=== PATIENT | male | born 1945 | race Caucasian/White ===

== ENCOUNTER 2016-12-04 09:18 | Emergency (ER) | payer MEDICARE ==
[~2016-12-04] VITALS: Ht 175.3 cm; Wt 94.8 kg
[~2016-12-04 09:18] MED LIST: ALBU17IN2; ALPHTAB2 PO; ASPI81TA85 PO; CHLO25TA PO; CIPR250T3 PO; FINA5TAB2 PO; LOSA25TA8 PO; METR500T10 PO; REFR1DRO8 OP; SIMV20TA2 PO; TAMS0.4C2 PO
[2016-12-04] MEDS ORDERED: LEVA500T PO (09:51)
[2016-12-04] MEDS ORDERED: SPIR1CAP INH (09:51)
[2016-12-04] MEDS ORDERED: ASPIRIN 81 MG CHEW TABLET PO ONE (10:00)
[2016-12-04 10:08] LABS: BASO % 0.3 % (0.0-1.0); EOS # 0.1 K/mm3 (0.0-0.50); EOS % 0.5 % (0.0-3.0); LARGE UNSTAINED CELL # 0.1 K/mm3 (0.0-0.4); LARGE UNSTAINED CELL % 0.9 % (0.0-4.0); LYMPH # 1.8 K/mm3 (1.5-4.5); LYMPH % 12.6 % (24.0-44.0); MEAN CORPUSCULAR HEMOGLOBIN 28.9 pg (27.0-33.0); MEAN CORPUSCULAR HGB CONC 34.4 g/dl (32.0-36.5); MONO # 0.9 K/mm3 (0.0-0.8); MONO % 6.6 % (0.0-5.0); NEUTROPHILS # 10.5 K/mm3 (1.8-7.7); NEUTROPHILS % 79.2 % (36.0-66.0); PLATELET COUNT, AUTOMATED 140 k/mm3 (150-450); RED CELL DISTRIBUTION WIDTH 13.5 % (11.5-14.5); WHITE BLOOD COUNT 13.2 K/mm3 (4.0-10.0)
[2016-12-04 10:26] LABS: ALBUMIN 3.6 GM/DL (3.2-5.2); ALKALINE PHOSPHATASE 72 U/L (45-117); ALT/SGPT 53 U/L (12-78); ANION GAP 9 MEQ/L (8-16); AST/SGOT 21 U/L (15-37); BILIRUBIN,DIRECT < 0.1 MG/DL (0.0-0.2); BILIRUBIN,TOTAL 0.4 MG/DL (0.2-1.0); BLOOD UREA NITROGEN 28 MG/DL (7-18); CARBON DIOXIDE LEVEL 28 MEQ/L (21-32); CHLORIDE LEVEL 100 MEQ/L (98-107); CREATININE FOR GFR 1.34 MG/DL (0.70-1.30); GLOMERULAR FILTRATION RATE 56.3 (>49); GLUCOSE, FASTING 179 MG/DL (80-110); POTASSIUM SERUM 3.5 MEQ/L (3.5-5.1); SODIUM LEVEL 137 MEQ/L (136-145); TOTAL PROTEIN 8.1 GM/DL (6.4-8.2)
--- NOTE | 2016-12-04 10:34 | REP ---
Clinical: Chest pain. Comparison: 11/10/2015. Technique: PA and lateral. Findings: Mediastinum and cardiac silhouette are stable and within normal limits. Lung clark demonstrate diffuse chronic stable changes including partially calcified pleural plaques. No acute effusion. No pneumothorax. Subtle superimposed atelectasis cannot be excluded. Skeletal structures intact. Impression: Chronic stable pleuroparenchymal changes. Cannot exclude subtle superimposed atelectasis. Signed by Seth Ring MD 12/04/2016 10:25 A
[2016-12-04 14:07] VITALS: BP 142/71
--- NOTE | 2016-12-04 18:36 | ECGEPIP ---
Stationary ECG Study [facility] - ED Test Date: 2016-12-04 Pat Name: KARLEY MAYA Department: Room: - Gender: M [employer] Apprentice: FABIÁN : 1945 Requested By: Cathie Dumont Order Number: [id number] Reading MD: Danial Garza Measurements Intervals [place] Rate: 49 P: 19 AK: 208 QRS: -18 QRSD: 109 T: -18 QT: 412 QTc: 374 Interpretive Statements SINUS BRADYCARDIA NONSPECIFIC T WAVE ABNORMALITIES NO PRIORS Electronically Signed On 12-04-2016 18:35:46 EDT by Danial Garza
== END 2016-12-04 14:33 | disposition short-term general hospital (02) ==
LOC: M ED 10:19
DX: I24.9 Acute ischemic heart disease, unspecified (principal); R06.02 Shortness of breath; E78.5 Hyperlipidemia, unspecified; Z79.899 Other long term (current) drug therapy; Z79.82 Long term (current) use of aspirin; Z88.1 Allergy status to other antibiotic agents; Z88.2 Allergy status to sulfonamides; Z87.891 Personal history of nicotine dependence